=== PATIENT | female | born 1945 | race Caucasian/White ===

== ENCOUNTER 2016-12-24 13:01 | Observation (INO) ==
[2016-12-24] MEDS ORDERED: ONDANSETRON 4 MG/2 ML VIAL IV PRN (14:04)
[2016-12-24] MEDS ORDERED: ACETAMINOPHEN 500 MG TABLET PO ONE (14:11)
[2016-12-24] MEDS: clonazePAM 1 MG TABLET PO SCH (19:55)
[2016-12-24] MEDS ORDERED: AMITRIPTYLINE 25 MG TABLET PO SCH (21:00)
[2016-12-25] MEDS: HYDROcodone/APAP 5/325MG TABLET PO PRN ×2 (03:39→08:30)
[2016-12-25] MEDS ORDERED: LEVOTHYROXINE 100 MCG TABLET PO SCH (07:30)
[2016-12-25] MEDS: clonazePAM 1 MG TABLET PO SCH (08:30)
[2016-12-25] MEDS ORDERED: SERTRALINE 50 MG TABLET PO SCH (09:00)
[2016-12-25] MEDS ORDERED: LISINOPRIL 20 MG TABLET PO SCH (09:00)
[2016-12-25] MEDS ORDERED: amLODIPine 5 MG TABLET PO SCH (09:00)
[2016-12-25] MEDS ORDERED: HYDROCHLOROTHIAZIDE 12.5 MG CAPSULE PO SCH (09:00)
[2016-12-25] MEDS ORDERED: buPROPion 150 MG TAB.XL.24H PO SCH (09:00)
[2016-12-25] MEDS ORDERED: FLU VACC QS2017-18 36MOS UP/PF 60 MCG/0.5 ML SYRINGE IM ONE (10:00)
== END 2016-12-25 13:15 | disposition home or self-care (01) ==
LOC: MEDSUR
PROVIDERS: ADMIT Pain Medicine Interventional Pain Medicine; ATTEND Pain Medicine Interventional Pain Medicine

== ENCOUNTER 2018-10-03 16:25 | Observation (INO) ==
[2018-10-03] MEDS ORDERED: LACTATED RINGERS 1,000 ML IV ONE (16:48)
[2018-10-03] MEDS ORDERED: ONDANSETRON 4 MG/2 ML VIAL IV ONE (16:48)
--- NOTE | 2018-10-03 17:23 | Emergency Department Note ---
General Adult HPI - General Source: patient Mode of arrival: EMS Limitations: no limitations <Janes Ponce - Last Filed: 10/03/18 19:28> <AlexisHumaira Gonzalez - Last Filed: 10/03/18 21:14> - General Chief complaint: Dizziness Stated complaint: vertigo/nausea Time Seen by Provider: 10/03/18 16:36 - History of Present Illness HPI Narrative: Pt complains of dizziness multiple falls since Tuesday. She said that she had 2 significant falls during this period. States he first fall (on Tuesday) was significant and EMS was called. She did not come to the hospital during that fall. Was assisted back to bed by EMS. This fall reportedly happened at 0400 that day. She fell backward and hit her occiput during that event. Dizziness and nausea has steadily increased since then. Denies LOC, is not on anti-coag ulation therapy and denies cervical tenderness. denies unilateral weakness or mental deficit. Denies acute injury or joint pain. Denies headache. She does report chronic bilateral lower extremity numbness and pain. Has a spinal stimulator placed for this condition. (Janes Ponce) agree with HPI. Patient describes to me more vertigo symptoms. States that both times this is started severely over the last week she has moved quickly to reach for dog food or turned her head quickly when this started. Feels like the room is spinning. She has had vertigo in the past but never this severe. States the dizziness or vertigo starts first and then she starts having the hemalatha sea and vomiting. She has had problems with intermittent diarrhea and constipation since having her gallbladder out and that is an ongoing issue. Dr. Lou did put her on some Levbid for abdominal cramping recently and it seems to have gotten worse since then. She also reports of the last year she is been under an extreme amount of stress. Her had bladder cancer and it was a trying time day after day. He recently in April. Daughter states since April patient does not take care of herself. Does not eat or drink, does not shop for herself or take care of herself or her house in any way. States her dad used to do all that and she would literally does not have know how to live on her own. The daughter and son are trying to help her out but there is only so much they can do. 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 Today she is agreeable to have some home health come in and may be help if needed but she does not want to go to any sort of assisted living facility, etc. States her house is her only asked that and she is not going anywhere. She also tells me that she knows she has severe depression. States however she feels her depression is actually better managed than it ever has been. She sees a telehealth psych physician through Dr. Lou. She is on 3 different antidepressants and feels like they are working well for her and her depression is stable although always present. Denies any thoughts of harming herself. Daughter states that patient has long psych history from before her children were even born and that he cannot rely on anything the patient says. (Humaira Espinoza) - Related Data Home Medications Medication Instructions Recorded Confirmed RX: Benazepril [Lotensin] 40 mg PO DAILY 12/24/16 10/03/18 RX: Levothyroxine [Synthroid] 112 mcg PO DAILY 12/24/16 10/03/18 RX: Sertraline [Zoloft] 100 mg PO HS 12/24/16 10/03/18 RX: clonazePAM [clonazePAM Odt] 1 - 2 tab PO BID PRN 12/24/16 10/03/18 potassium chloride ER 10 mEq 10 meq PO TID cap 01/16/18 10/03/18 capsule,extended release RX: buPROPion [Wellbutrin Xl] 300 mg PO QHS 01/17/18 10/03/18 carvedilol 12.5 mg tablet 12.5 mg PO BID 08/14/18 10/03/18 polyethylene glycol 3350 17 gram 17 g PO QDAY 08/14/18 10/03/18 oral powder packet Hyoscyamine Sulfate [Anaspaz] 0.125 mg PO Q6HP PRN 10/03/18 10/03/18 Meclizine [Antivert] 25 mg PO TIDP PRN 10/03/18 10/03/18 Ondansetron HCl [Zofran] 4 mg PO Q6HP PRN 10/03/18 10/03/18 RX: HYDROcodone/APAP 5/325MG 1 - 2 tab PO Q4-6HP PRN 10/03/18 10/03/18 [[place] 5-325Mg] Previous Rx's Medication Instructions Recorded amitriptyline 25 mg tablet 25 mg PO TID #90 tab 03/28/18 Allergies Allergy/AdvReac Type Severity Reaction Status Date / Time adhesive tape Allergy Unknown Rash Verified 05/21/18 02:48 Review of Systems Constitutional: Reports: weakness (States chronic weakness, ambulates with a walker.). Denies: fever, chills Eyes: Denies: eye discharge, vision change ENT ED: Denies: ear pain, throat pain, rhinorrhea Cardiovascular: Denies: chest pain, palpitations, syncope Respiratory: Reports: cough, phlegm. Denies: shortness of breath, wheezes Gastrointestinal: Reports: nausea, vomiting, diarrhea (Reports episodes of diarrhea since her gall bladder removal.). Denies: abdominal pain Genitourinary: Denies: dysuria, urgency Musculoskeletal: Reports: back pain, joint pain (Chronic L knee, uses walker, Has spinal stimulator.) Neurological: Reports: weakness, numbness (chronic), dizziness. Denies: headache Psychiatric: Denies: anxiety, auditory hallucinations, visual hallucinations Endocrine: Denies: fatigue <Janes Ponce - Last Filed: 10/03/18 19:28> All systems ED: reviewed and negative except as stated. <Humaira Espinoza - Last Filed: 10/03/18 21:14> Past Medical History - Past Medical History Medical history: Reports: GERD, hypertension, hypothyroidism, other (Systolic murmur. Lymphedema.) Psychiatric history: Reports: anxiety, depression Surgical history ED: Reports: non-contributory, MALGORZATA/BSO (benign disease) - Social History smoking status: Never smoker Alcohol use: Reports: None Drug use: Reports: none. Denies: marijuana <Janes Ponce - Last Filed: 10/03/18 19:28> <Humaira Espinoza - Last Filed: 10/03/18 21:14> - Past Medical History [facility] Narrative: Medical History (Last Reviewed 08/14/18 @ 10:48 by Mena Herrera PA-C) Syndrome (Chronic) Neuropathy (Chronic) Obesity (Chronic) Nausea (Chronic) Diverticular disease (Chronic) Unintentional weight loss (Chronic ~10/2017) Abdominal pain (Chronic) Diarrhea (Chronic) Snoring (Chronic) Colon polyps (Chronic) Hypothyroidism (Chronic) Hypertension, essential (Chronic) Edema (Chronic) Depression (Chronic) Constipation (Chronic) Anxiety (Chronic) Cholelithiasis without obstruction (Chronic) Past Surgical History (Last Reviewed 08/14/18 @ 10:48 by Mena Herrera PA-C) History of laparoscopic cholecystectomy (Acute) Status post insertion of spinal cord stimulator (Acute) H/O colonoscopy (Chronic) H/O total hysterectomy (Chronic) History of esophagogastroduodenoscopy (Chronic) History of tonsillectomy and adenoidectomy (Chronic) (Humaira Espinoza) Physical Exam Limitations: no limitations General appearance: alert Head: atraumatic, normocephalic, normal inspection Eye: Present: PERRL, nystagmus. Absent: conjunctival injection, periorbital swelling ENT: normal exam, normal oropharynx, mucous membranes moist, TM's normal bilaterally, normal external ear exam Neck: Present: normal inspection. Absent: tenderness, lymphadenopathy Chest: Present: symmetric chest wall rise Respiratory: Present: normal lung sounds bilaterally Cardiovascular: Present: regular rate, normal rhythm, +S1, +S2 Abdominal: Present: normal bowel sounds. Absent: tenderness, guarding, organomegaly Extremities: Present: tenderness, normal capillary refill. Absent: pedal edema Neurological: Present: alert, oriented X3 Skin: Present: warm, pallor <Brown,Janes - Last Filed: 10/03/18 19:28> General appearance: tearful Neurological: Present: CN II-XII intact (Grossly). Absent: normal gait (Unable to stand or walk on her own and grabs on to people and cries.) Psychiatric: Present: depressed. Absent: homicidal ideation, suicidal ideation Skin: Present: warm, dry, intact, pallor (On arrival but did improve) <Humaira Espinoza - Last Filed: 10/03/18 21:14> Course <Humaira Espinoza - Last Filed: 10/03/18 21:14> Course Narrative: Patient continues to have nausea and severe vertigo. Crying and crying states she cannot stand or walk or go home. We did try to get her up multiple times and discharge her however she was unable to get around at all on her own. Patient was also seen by supervising ER physician, Dr. Schaffer. At 2100 Dr. Schaffer did speak with hospitalist, Dr. Gaspar. who agrees to accept this patient. (BalwindergueritasurajHumaira Lisa) Vital Signs Temperature 99.3 F H 10/03/18 16:26 Pulse Rate 76 10/03/18 16:26 Respiratory Rate 14 10/03/18 16:26 Blood Pressure 208/91 10/03/18 16:26 Pulse Oximetry (%) 100 10/03/18 16:26 Temperature 99.3 F H 10/03/18 16:26 Pulse Rate 68 10/03/18 21:00 Respiratory Rate 15 10/03/18 21:00 Blood Pressure 162/94 10/03/18 20:41 Pulse Oximetry (%) 100 10/03/18 21:00 Medical Decision Making - Lab Data Result diagrams: 10/03/18 16:48 10/03/18 16:48 <Janes Ponce - Last Filed: 10/03/18 19:28> - Lab Data Lab results reviewed: Yes I reviewed the patient's lab results. Result diagrams: 10/03/18 16:48 10/03/18 16:48 - Radiology Data Radiology results reviewed: Yes I reviewed the patient's radiology results. <Humaira Espinoza - Last Filed: 10/03/18 21:14> - Lab Data Lab Results 10/03/18 10/03/18 10/03/18 Range/Units 16:48 16:48 17:47 WBC 9.7 (4.5-11.0) K/mcL RBC 5.29 H (4.00-5.20) M/mcL Hgb 15.4 H (12.0-15.0) g/dL Hct 47.1 (36.0-48.0) % MCV 88.9 (80.0-100.0) fL MCH 29.1 (26.0-34.0) pg MCHC 32.7 (31.0-36.0) g/dL RDW 13.5 (11.5-14.5) % Plt Count 291 (140-440) K/mcL MPV 9.0 (7.4-10.4) fL Gran % 83.6 H (38.0-78.0) % Lymph % (Auto) 12.8 L (15.5-49.0) % Cole % (Auto) 3.3 (1.0-12.0) % Eos % (Auto) 0 (0.0-7.0) % Baso % (Auto) 0.3 (0.0-2.0) % Gran # 8.1 H (1.8-8.0) K/mcL Lymph # (Auto) 1.2 L (1.5-4.8) K/mcL Cole # (Auto) 0.3 (0.1-0.9) K/mcL Eos # (Auto) 0 (0.0-0.7) K/mcL Baso # (Auto) 0 (0.0-0.3) K/mcL Sodium 139 (133-145) mmol/L Potassium 3.4 (3.3-5.1) mmol/L Chloride 99 (96-108) mmol/L Carbon Dioxide 24 (22-30) mmol/L Anion Gap 16.0 (8-16) BUN 9 (8-23) mg/dl Creatinine 0.5 L (0.6-1.1) mg/dl GFR Calculation 97 Glucose 126 H (70-105) mg/dL Calcium 9.0 (8.6-10.4) mg/dl Total Bilirubin 0.8 (0.0-1.0) mg/dL AST 16 (0-37) U/l ALT 13 (0-40) U/l Alkaline Phosphatase 102 (39-117) U/L Total Protein 7.4 (5.9-8.4) gm/dL Albumin 4.4 (3.2-5.2) gm/dL Globulin 3.0 (2.2-3.7) gm/dL Albumin/Globulin Ratio 1.5 (1.0-2.3) Urine Color Yellow Urine Appearance Clear Urine pH 9.0 (5.0-9.0) Ur Specific [place] 1.012 (1.000-1.035) Urine Protein 100 A (NEG) mg/dL Urine Glucose (UA) Negative (NEG) mg/dL Urine Ketones 5/tr A (NEG) mg/dL Urine Occult Blood 0.03 A (<0.03) mg/dL Urine Nitrate Neg (NEG) Urine Bilirubin Neg (NEG) mg/dL Urine Urobilinogen Neg (NEG) mg/dL Ur Leukocyte Esterase Neg (NEG) /uL Urine RBC 2 H (0-1) /hpf Urine WBC 3 (0-4) /hpf Ur Squamous Epith Cells 1 (0-4) /hpf Urine Bacteria 0 (0) /hpf Urine Mucus Few (0) /hpf Ur Culture Indicated? No Disposition <KrisJanes - Last Filed: 10/03/18 19:28> Pt seen by ASSISTANT FRONT END MANAGER/PA only: No Time of Disposition: 19:23 <Humaira Espinoza - Last Filed: 10/03/18 21:14> Clinical Impression: Vertigo, Vomiting, Diarrhea, Generalized weakness, Depression Disposition: Home, Self-Care Condition: Fair Instructions: Vertigo (ED), Acute Nausea and Vomiting (ED), Acute Diarrhea (ED) Additional Instructions: Stop the hyoscyamine and do not take any longer. Meclizine: take as needed/directed for vertigo. Get a bulk fiber over the counter such as Fibercon to take daily. Increase oral fluids and rest. Recheck with Dr. Lou within the next 1-3 days for a follow up. Return to the ER if worsening signs/symptoms or other concerns. Referrals: Mary Lou MD [Primary Care Provider] -
--- NOTE | 2018-10-03 17:25 | Cat Scan Report ---
CLINICAL INFORMATION: Head injury 4 days ago. Dizziness. COMPARISON: Previous CT scan dated 09/01/2010 TECHNIQUE: Axial noncontrast-enhanced images through the brain. Sagittal and coronal reformatted images FINDINGS: No acute intracranial hemorrhage. There is no subdural hematoma. There is no subarachnoid hemorrhage. No intra-axial hemorrhage. No focal intra-axial attenuation abnormality or localized mass effect. No midline shift. Brain volume is normal. There is no acute hydrocephalus. Brainstem and cerebellum are negative. Basilar cisterns are normal. No calvarial fracture. There is no lytic lesion. Temporal bones are negative. No basilar skull fracture. IMPRESSION: Negative noncontrast enhanced brain CT scan The exam was performed using radiation dose optimization techniques including, but not limited to, automated exposure control, adjustment of the mA and/or kV according to patient size and use of iterative reconstruction technique. Interpreted and Authenticated by: Kang Doan 10/03/18
[2018-10-03 17:38] LABS: Basophils # (Auto) 0 K/mcL (0.0-0.3); Basophils % (Auto) 0.3 % (0.0-2.0); Eosinophils # (Auto) 0 K/mcL (0.0-0.7); Eosinophils % (Auto) 0 % (0.0-7.0); Granulocytes % (Auto) 83.6 % (38.0-78.0); Hematocrit 47.1 % (36.0-48.0); Hemoglobin 15.4 g/dL (12.0-15.0); Lymphocytes # (Auto) 1.2 K/mcL (1.5-4.8); Lymphocytes % (Auto) 12.8 % (15.5-49.0); Mean Cell Volume 88.9 fL (80.0-100.0); Mean Corpuscular HGB Conc 32.7 g/dL (31.0-36.0); Monocytes # (Auto) 0.3 K/mcL (0.1-0.9); Monocytes % (Auto) 3.3 % (1.0-12.0); Platelet Count 291 K/mcL (140-440); RBC 5.29 M/mcL (4.00-5.20); Red Cell Distribution Width 13.5 % (11.5-14.5); WBC 9.7 K/mcL (4.5-11.0)
[2018-10-03 17:49] LABS: ALT/SGPT 13 U/l (0-40); AST/SGOT 16 U/l (0-37); Albumin 4.4 gm/dL (3.2-5.2); Albumin/Globulin Ratio 1.5 (1.0-2.3); Alkaline Phosphatase 102 U/L (39-117); Bilirubin,Total 0.8 mg/dL (0.0-1.0); Blood Urea Nitrogen 9 mg/dl (8-23); Carbon Dioxide 24 mmol/L (22-30); Chloride 99 mmol/L (96-108); Glomerular Filtration Rate 97; Glucose 126 mg/dL (70-105); Potassium 3.4 mmol/L (3.3-5.1); Sodium 139 mmol/L (133-145)
[2018-10-03] MEDS ORDERED: 0.9 % SODIUM CHLORIDE 1,000 ML IV ONE (18:37)
[2018-10-03] MEDS ORDERED: MECLIZINE 25 MG TABLET PO ONE (19:00)
[2018-10-03 20:47] LABS: Appearance,Urine CLEAR; Bacteria,Urine 0 /hpf (0); Bilirubin,Urine NEG (NEG); Color,Urine YELLOW; Culture Indicated,Urine NO; Glucose,Urine (UA) NEGATIVE (NEG); Ketones,Urine 5/TR mg/dL (NEG); Leukocyte Esterase,Urine NEG /uL (NEG); Mucus,Urine FEW /hpf (0); Nitrate,Urine NEG (NEG); Protein,Urine 100 mg/dL (NEG); Specific Gravity,Urine 1.012 (1.000-1.035); Urine Blood 0.03 mg/dL (<0.03); Urine RBC 2 /hpf (0-1); Urine Squamous Epithelial Cell 1 /hpf (0-4); Urine WBC 3 /hpf (0-4); Urobilinogen,Urine NEG (NEG)
--- NOTE | 2018-10-03 21:31 | Internal Med History&Physical ---
Medical - H&P: [facility] Patient information: Note initiated : 10/03/18 at 9:28 pm Service Date, if different from initiated Date: [] Patient: Lisa Hart a 73 y/o F admitted on for vertigo/nausea. Chief Complaint: [] History of present illness: Ms. Hart is a 73 year old F Presents the ED with nausea vomiting weakness vertigo. The vertigo and nausea vomiting started this morning 4am the morning. She did vertigo in the past has been on meclizine in the past. She was recently put on Levbid for abdominal cramping, no other new medication changes. Did miss her morning blood pressure medications and had an elevated blood pressure in the ED. She has an underlying psychiatric history. Patient was found to be too weak to be sent home and thus patient was requested for admission. She said intermittent diarrhea since having her gallbladder out last fall. Did not have any diarrhea yesterday she did have one episode this morning. Which was watery. Has some chills but no fevers no headaches no chest pain or stomach pain. Review of Systems: Pertinent positives as above. Denies headache/fever/chills/chest or abdominal pain/cough/dyspnea/remaining 10 point review of system reviewed negative Medical - H&P: PMH Medical history: Medical History (Last Reviewed 08/14/18 @ 10:48 by Mena Herrera PA-C) Syndrome (Chronic) Neuropathy (Chronic) Obesity (Chronic) Nausea (Chronic) Diverticular disease (Chronic) Unintentional weight loss (Chronic ~10/2017) Abdominal pain (Chronic) Diarrhea (Chronic) Snoring (Chronic) Colon polyps (Chronic) Hypothyroidism (Chronic) Hypertension, essential (Chronic) Edema (Chronic) Depression (Chronic) Constipation (Chronic) Anxiety (Chronic) Cholelithiasis without obstruction (Chronic) Past Surgical History (Last Reviewed 08/14/18 @ 10:48 by Mena Herrera PA-C) History of laparoscopic cholecystectomy (Acute) Status post insertion of spinal cord stimulator (Acute) H/O colonoscopy (Chronic) H/O total hysterectomy (Chronic) History of esophagogastroduodenoscopy (Chronic) History of tonsillectomy and adenoidectomy (Chronic) Family History (Last Reviewed 08/14/18 @ 10:48 by Mena Herrera PA-C) Sister Colon cancer Coronary arteriosclerosis Cerebrovascular disease Social History (Last Updated 08/22/18 @ 12:54 by Sophie Cutler MD) Patient denies tobacco or alcohol lives by herself and ambulates with a walker Medical - H&P: Meds Home Medications Medication Instructions Recorded Confirmed Type Benazepril [Lotensin] 40 mg PO DAILY 12/24/16 10/03/18 History Levothyroxine [Synthroid] 112 mcg PO DAILY 12/24/16 10/03/18 History Sertraline [Zoloft] 100 mg PO HS 12/24/16 10/03/18 History clonazePAM [clonazePAM Odt] 1 - 2 tab PO BID PRN 12/24/16 10/03/18 History potassium chloride ER 10 mEq 10 meq PO TID cap 01/16/18 10/03/18 History capsule,extended release buPROPion [Wellbutrin Xl] 300 mg PO QHS 01/17/18 10/03/18 History amitriptyline 25 mg tablet 25 mg PO TID #90 tab 03/28/18 10/03/18 Rx carvedilol 12.5 mg tablet 12.5 mg PO BID 08/14/18 10/03/18 History polyethylene glycol 3350 17 gram 17 g PO QDAY 08/14/18 10/03/18 History oral powder packet HYDROcodone/APAP 5/325MG [[place] 1 - 2 tab PO Q4-6HP PRN 10/03/18 10/03/18 History 5-325Mg] Hyoscyamine Sulfate [Anaspaz] 0.125 mg PO Q6HP PRN 10/03/18 10/03/18 History Meclizine [Antivert] 25 mg PO TIDP PRN 10/03/18 10/03/18 History Ondansetron HCl [Zofran] 4 mg PO Q6HP PRN 10/03/18 10/03/18 History Allergies Allergy/AdvReac Type Severity Reaction Status Date / Time adhesive tape Allergy Unknown Rash Verified 05/21/18 02:48 Medical - H&P: Exam - Constitutional Vitals: Temp Pulse Resp BP Pulse Ox 99.3 F H 68 15 162/94 100 10/03/18 16:26 10/03/18 21:00 10/03/18 21:00 10/03/18 20:41 10/03/18 21:00 Exam: General: Alert, Awake, No acute Distress Eyes/N/T: EOMI, PEERL, DMM Head/Neck: neck supple, normocephalic atraumatic CV: RRR, 2/6 SM Pulm: Clear b/l, no wheezing/rhonchi/rales Abd: soft, nontender, +BS x4 Ext: no clubbing/cyanosis/pitting edema Neuro: Alert, no focal deficits, moves all extremities, CN 2-12 grossly intact, symmetrical strength b/l upper/lower, sensations intact b/l upper/lower Skin: warm/dry Medical - H&P: Reslt - Labs CBC & Chem 7: 10/03/18 16:48 10/03/18 16:48 Labs: Short CBC 10/03/18 Range/Units 16:48 WBC 9.7 (4.5-11.0) K/mcL Hgb 15.4 H (12.0-15.0) g/dL Hct 47.1 (36.0-48.0) % Plt Count 291 (140-440) K/mcL BMP 10/03/18 16:48 Sodium 139 Potassium 3.4 Chloride 99 Carbon Dioxide 24 BUN 9 Creatinine 0.5 L Glucose 126 H Calcium 9.0 Liver Function 10/03/18 Range/Units 16:48 Total Bilirubin 0.8 (0.0-1.0) mg/dL AST 16 (0-37) U/l ALT 13 (0-40) U/l Alkaline Phosphatase 102 (39-117) U/L Albumin 4.4 (3.2-5.2) gm/dL Urine 10/03/18 Range/Units 17:47 Urine Color Yellow Urine Appearance Clear Urine pH 9.0 (5.0-9.0) Ur Specific [place] 1.012 (1.000-1.035) Urine Protein 100 A (NEG) mg/dL Urine Glucose (UA) Negative (NEG) mg/dL - Impressions CT brain unremarkable for acute pathology Medical - H&P: A/P - Narrative A/P Narrative: A: *N/V/vertigo: With history of vertigo *Intermittent diarrhea since cholecystectomy last fall: *Volume depletion: *Generalized weakness/deconditioning/falls: *Peripheral neuropathy: *Depression/anxiety: *HTN: Elevated in the ER as she missed her home medication dosing today *Hypothyroidism: tsh * P: -IVF -Meclizine -Benadryl and Zofran -Hold hyoscyamine -Stool studies pending -Continue blood pressure medications -Continue psychiatric medications -pt/ot -Case management for placement -ppx: Lovenox
[2018-10-03] MEDS ORDERED: hydrALAZINE 20 MG/ML VIAL IV PRN (21:51)
[2018-10-03] MEDS ORDERED: diphenhydrAMINE 50 MG/ML VIAL IV PRN (21:51)
[2018-10-03] MEDS ORDERED: PROMETHAZINE 25 MG/ML VIAL IV PRN (21:51)
[2018-10-03] MEDS ORDERED: 0.9 % SODIUM CHLORIDE 1,000 ML IV SCH (21:51)
[2018-10-03] MEDS ORDERED: ACETAMINOPHEN 325 MG TABLET PO PRN (21:51)
[2018-10-03] MEDS ORDERED: ONDANSETRON 4 MG ODT TABLET PO PRN (21:51)
[2018-10-03] MEDS ORDERED: MECLIZINE 25 MG TABLET PO PRN (21:51)
[2018-10-03] MEDS ORDERED: HYDROcodone/APAP 5/325MG TABLET PO PRN (21:51)
[2018-10-03] MEDS: ONDANSETRON 4 MG/2 ML VIAL IV PRN (22:58)
[2018-10-03] MEDS: 0.9 % SODIUM CHLORIDE 10 ML SYRINGE IV SCH (22:59)
--- NOTE | 2018-10-04 00:37 | Emergency Department Note ---
ED Note Addendum Note Addendum: I saw this patient with Janes Ponce nurse practitioner student as well as Humaira Espinoza nurse practitioner. I agree with their evaluation management documentation. Further, I discussed the case with Dr. Gaspar, our hospitalist for admission.
[2018-10-04] MEDS ORDERED: clonazePAM 1 MG TABLET ONE (02:06)
[2018-10-04] MEDS: 0.9 % SODIUM CHLORIDE 10 ML SYRINGE IV SCH ×3 (05:42→20:21)
[2018-10-04] MEDS: ONDANSETRON 4 MG/2 ML VIAL IV PRN (06:37)
--- NOTE | 2018-10-04 06:55 | Internal Med Progress Note ---
Medical - PN: Subj Patient information: Note initiated : 10/04/18 at 6:52 am Service Date, if different from initiated Date: [] Patient: Lisa Hart 73 y/o F admitted on 10/03/18 for vertigo/nausea. Chief Complaint: [] Interval history: Ms. Hart is a 73 year old F Presents the ED with nausea vomiting weakness vertigo. The vertigo and nausea vomiting started this morning 4am the morning. She did vertigo in the past has been on meclizine in the past. She was recently put on Levbid for abdominal cramping, no other new medication changes. Did miss her morning blood pressure medications and had an elevated blood pressure in the ED. She has an underlying psychiatric history. Patient was found to be too weak to be sent home and thus patient was requested for admission. She said intermittent diarrhea since having her gallbladder out last fall. Did not have any diarrhea yesterday she did have one episode this morning. Which was watery. Has some chills but no fevers no headaches no chest pain or stomach pain. Denies sudden movement of her head or sitting up making the vertigo worse. States the vertigo more noticeable the past few days after starting the medication. 10/04 Slept okay. No nausea vomitus morning no diarrhea since admission. No new complaints. Walked with physical therapy. Feeling a little better. Review of Systems: denies headache/fever/chills/nausea/vomiting/chest or abdominal pain/cough/dyspnea/diarrhea. Otherwise see above. - Constitutional Vitals: Vital Signs Temp Pulse Resp BP Pulse Ox 98.8 F 80 18 135/71 95 10/04/18 03:37 10/04/18 03:37 10/04/18 03:37 10/04/18 03:37 10/04/18 03:37 Period Temp Pulse Resp BP Sys/Lemon Pulse Ox Last 24 Hr 98.7 F-99.4 F 65-80 12-25 124-208/67-96 95-100 Intake and Output 10/03/18 10/04/18 10/04/18 21:59 05:59 13:59 Intake Total 2000 200 Output Total 200 Balance 1999 0 Weight 96.615 kg 96.615 kg Intake & Output: Intake & Output 10/03/18 10/04/18 10/04/18 21:59 05:59 13:59 Intake Total 1999 200 Output Total 200 Balance 1999 0 Weight 96.615 kg 96.615 kg Intake: IV 2000 Sodium Chloride 0.9% 1,000 ml @ 1000 Wide Open IV BOLUS ONE Rx#: [id number] Lactated Ringers 1,000 ml @ 1000 Wide Open IV BOLUS ONE Rx#: [id number] Oral 200 Output: Void Amount 200 Other: Urine Appearance Clear Urine Color Bright Yellow # Voids 1 Exam: General: Alert, Awake, No acute Distress Eyes/N/T: EOMI, Head/Neck: neck supple, CV: RRR, 2/6 SM Pulm: Clear b/l, no wheezing/rhonchi/rales Abd: soft, nontender, +BS x4 Ext: no clubbing/cyanosis/pitting edema Neuro: Alert, no focal deficits, moves all extremities, Skin: warm/dry Medical - PN: Obj Da - Labs CBC & Chem 7: 10/03/18 16:48 10/03/18 16:48 Labs: Abnormal Lab Results 10/03/18 10/03/18 10/03/18 17:47 16:48 16:48 RBC 5.29 H Hgb 15.4 H Gran % 83.6 H Lymph % (Auto) 12.8 L Gran # 8.1 H Lymph # (Auto) 1.2 L Creatinine 0.5 L Glucose 126 H Urine Protein 100 A Urine Ketones 5/tr A Urine Occult Blood 0.03 A Urine RBC 2 H Meds: Medications Acetaminophen (Tylenol) 650 mg PO Q6HP PRN PRN Reason: PAIN/FEVER > 101 Hydrocodone Bitart/Acetaminophen ([place] 5/325mg) 1 - 2 tab PO Q4-6HP PRN PRN Reason: Pain Amitriptyline HCl (Elavil) 25 mg PO TID MICKEY Bupropion HCl (Wellbutrin Xl) 300 mg PO QHS MICKEY Carvedilol (Coreg) 12.5 mg PO BID MICKEY Clonazepam (Klonopin) 0 mg PO BIDP PRN PRN Reason: Anxiety Diphenhydramine HCl (Benadryl) 25 mg IV Q4-6HP PRN PRN Reason: Allergic Symptoms Enoxaparin Sodium (Lovenox) 40 mg SQ DAILY MICKEY Hydralazine HCl (Apresoline) 0 mg IV Q4-6HP PRN PRN Reason: Hypertension Last Admin: 10/03/18 22:58 Dose: 10 mg Documented by: Sodium Chloride (Sodium Chloride 0.9%) 1,000 mls @ 100 mls/hr IV .Q10H MICKEY Stop: 10/04/18 07:50 Last Admin: 10/03/18 22:58 Dose: 100 mls/hr Documented by: Levothyroxine Sodium (Synthroid) 112 mcg PO ACB MICKEY Lisinopril (Zestril) 40 mg PO DAILY MICKEY Meclizine HCl (Antivert) 25 mg PO TIDP PRN PRN Reason: dizziness Ondansetron HCl (Zofran) 4 mg IV Q6HP PRN PRN Reason: Nausea And Vomiting Last Admin: 10/04/18 06:37 Dose: 4 mg Documented by: Ondansetron HCl (Zofran Odt) 4 mg PO Q6HP PRN PRN Reason: Nausea And Vomiting Potassium Chloride (Kdur) 10 meq PO TIDCC MICKEY Promethazine HCl (Phenergan) 12.5 mg IV Q6HP PRN PRN Reason: Nausea And Vomiting Sertraline HCl (Zoloft) 100 mg PO HS MICKEY Sodium Chloride (Saline Flush) 10 ml IV Q8 MICKEY Last Admin: 10/04/18 05:42 Dose: Not Given Documented by: Medical - PN: A/P - Time Spent With Patient Total time spent is greater than 50% in coordination of care (as documented) at patient's floor/unit and/or counseling patient: - Narrative A/P Narrative: A: *N/V/vertigo: With history of vertigo -none today *Intermittent diarrhea since cholecystectomy last fall: none since admission *Volume depletion: *Generalized weakness/deconditioning/falls: *Peripheral neuropathy: *Depression/anxiety: *HTN: Elevated in the ER as she missed her home medication dosing today *Hypothyroidism: tsh wnl P: -IVF -Meclizine -Benadryl and Zofran -Hold hyoscyamine -Stool studies pending -Continue blood pressure medications -Continue psychiatric medications -pt/ot -Case management for placement -ppx: Lovenox
[2018-10-04] MEDS: LEVOTHYROXINE 25 MCG TABLET PO SCH (07:49)
[2018-10-04] MEDS: ENOXAPARIN 40 MG/0.4 ML SYRINGE SQ SCH (08:57)
[2018-10-04] MEDS: CARVEDILOL 12.5 MG TABLET PO SCH ×2 (08:57→20:20)
[2018-10-04] MEDS: AMITRIPTYLINE 25 MG TABLET PO SCH ×2 (08:57→14:41)
[2018-10-04] MEDS: LISINOPRIL 20 MG TABLET PO SCH (08:57)
[2018-10-04] MEDS: POTASSIUM CHLORIDE 10 MEQ TABLET PO SCH ×3 (08:57→17:45)
[2018-10-04] MEDS ORDERED: clonazePAM 1 MG TABLET PO PRN (09:00)
[2018-10-04] MEDS ORDERED: buPROPion 150 MG TAB.XL.24H PO SCH (21:00)
[2018-10-04] MEDS ORDERED: AMITRIPTYLINE 25 MG TABLET PO SCH (21:00)
[2018-10-04] MEDS ORDERED: SERTRALINE 100 MG TABLET PO SCH (21:00)
[2018-10-05] MEDS: 0.9 % SODIUM CHLORIDE 10 ML SYRINGE IV SCH (04:35)
--- NOTE | 2018-10-05 06:59 | Discharge Summary ---
Medical - DS: Prov Patient information: Note initiated : 10/05/18 at 6:57 am Service Date, if different from initiated Date: [] Patient: Lisa Hart 73 y/o F admitted on 10/03/18 for vertigo/nausea. Chief Complaint: [] Date of admission: 10/03/18 21:50 Discharge date: 10/05/18 Primary care physician: Mary Lou Consults: 10/03/18 Consult to Physician [CONS] Stat Comment: Consulting Provider: Fuentes Gaspar Reason For Exam: Physician to Consult Medical - DS: Meds - Discharge Medications Prescriptions: Meclizine [Antivert] 25 mg PO TIDP PRN #30 tab PRN Reason: dizziness Active and Home Medications: Home Medications Benazepril [Lotensin] 40 mg PO DAILY 12/24/16 [History Confirmed 10/03/18 Last Taken 10/02/18 08:30] Levothyroxine [Synthroid] 112 mcg PO DAILY 12/24/16 [History Confirmed 10/03/18 Last Taken 10/02/18 08:30] Sertraline [Zoloft] 150 mg PO HS 12/24/16 [History Confirmed 10/04/18 Last Taken 10/02/18 19:00] clonazePAM [clonazePAM Odt] 1 - 2 tab PO BID PRN 12/24/16 [History Confirmed 10/03/18 Last Taken 10/01/18 19:00] potassium chloride ER 10 mEq capsule,extended release 20 meq PO BID cap 01/16 [History Confirmed 10/04/18 Last Taken 09/24/18] buPROPion [Wellbutrin Xl] 300 mg PO QHS 01/17/18 [History Confirmed 10/03/18 Last Taken 10/02/18 19:00] carvedilol 12.5 mg tablet 12.5 mg PO BID 08/14/18 [History Confirmed 10/03/18 Last Taken 10/02/18 19:00] polyethylene glycol 3350 17 gram oral powder packet 17 g PO QDAY 08/14/18 [History Confirmed 10/03/18 Last Taken 10/01/18] HYDROcodone/APAP 5/325MG [[place] 5-325Mg] 1 - 2 tab PO Q4-6HP PRN 10/03/18 [History Confirmed 10/03/18 Last Taken 09/19/18] Hyoscyamine Sulfate [Anaspaz] 0.125 mg PO Q6HP PRN 10/03/18 [History Confirmed 10/03/18 Last Taken 10/01/18] Amitriptyline [Elavil] 75 mg PO HS 10/04/18 [History Confirmed 10/04/18 Last Taken Unknown] Medical - DS: Hosp Hospital course: Ms. Hart is a 73 year old F Presents the ED with nausea vomiting weakness vertigo. The vertigo and nausea vomiting started this morning 4am the morning. She did vertigo in the past has been on meclizine in the past. She was recently put on Levbid for abdominal cramping, no other new medication changes. Did miss her morning blood pressure medications and had an elevated blood pressure in the ED. She has an underlying psychiatric history. Patient was found to be too weak to be sent home and thus patient was requested for admission. She said intermittent diarrhea since having her gallbladder out last fall. Did not have any diarrhea yesterday she did have one episode this morning. Which was watery. Has some chills but no fevers no headaches no chest pain or stomach pain. Denies sudden movement of her head or sitting up making the vertigo worse. States the vertigo more noticeable the past few days after starting the medication. 10/04 Slept okay. No nausea vomitus morning no diarrhea since admission. No new complaints. Walked with physical therapy. Feeling a little better. 10/05 Did well with physical therapy yesterday. No nausea vomiting. Stable for discharge Discharge diagnosis: Vertigo nausea vomiting generalized weakness volume depletion Secondary discharge diagnosis: Peripheral neuropathy depression anxiety hypertension hypothyroidism - Time Spent with Patient Total time spent providing and/or coordinating discharge services: Greater than 30 minutes Medical - DS: Exam - Constitutional Vitals: Vital Signs Temp Pulse Resp BP BP Pulse Ox 10/05/18 05:16 67 148/72 10/05/18 04:41 98.0 F 68 16 169/95 97 10/04/18 23:28 98.3 F 69 16 138/71 93 10/04/18 20:20 98.1 F 73 16 163/81 95 10/04/18 16:00 99.0 F 71 18 138/75 97 10/04/18 12:00 99.0 F 69 18 142/70 98 10/04/18 08:00 98.2 F 78 18 137/76 98 Intake and Output 10/04/18 10/05/18 10/05/18 21:59 05:59 13:59 Intake Total 300 Output Total 200 300 Balance -200 0 Intake: Oral 300 Output: Void Amount 200 300 Other: Meal Dinner Percent of Meal Consumed 100% Feeding Ability Independent Urine Appearance Clear Urine Color Dark Yellow Dark Yellow Urine Odor Strong Strong Weight 99.337 kg Medical - DS: A/P - Patient/Caregiver Discharge Instructions Activity: increase activity as tolerated Diet: Regular Diet Additional Instructions: Stop the hyoscyamine and do not take any longer. Meclizine: take as needed/directed for vertigo. Get a bulk fiber over the counter such as Fibercon to take daily. Increase oral fluids and rest. Recheck with Dr. Luo within the next 1-3 days for a follow up. Return to the ER if worsening signs/symptoms or other concerns. - Follow up Plan Follow up with: Mary Lou MD [Primary Care Provider] - Disposition: Home Health Service Prognosis: Fair Rehab Potential: Fair Overall status at discharge: patient is back to baseline
[2018-10-05] MEDS: LEVOTHYROXINE 25 MCG TABLET PO SCH (07:10)
[2018-10-05] MEDS: CARVEDILOL 12.5 MG TABLET PO SCH (08:52)
[2018-10-05] MEDS: ENOXAPARIN 40 MG/0.4 ML SYRINGE SQ SCH (08:52)
[2018-10-05] MEDS: LISINOPRIL 20 MG TABLET PO SCH (08:52)
[2018-10-05] MEDS: POTASSIUM CHLORIDE 10 MEQ TABLET PO SCH (08:52)
== END 2018-10-05 12:20 | disposition home health service (06) ==
LOC: ED 16:25 → MEDSUR 16:25
PROVIDERS: ADMIT Internal Medicine; ATTEND Internal Medicine